=== PATIENT | male | born 1970 | race African-American/Black ===

== ENCOUNTER 2017-10-20 01:36 | Emergency (ER) | payer OTHER ==
[~2017-10-20] VITALS: Ht 180.3 cm; Wt 98.0 kg
--- NOTE | 2017-10-20 02:44 | ED HAND/WRIST INJURY COMPLAINT ---
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 LAC NOTED W/ CONTINUOUS BLEEDING THROUGHOUT TRIAGE, SATURATED 3 DRESSINGS. LAC NOTED TO L LATERAL/ TOP OF WRIST W/ APPROX BASEBALL SIZED SWELLING TO SITE. MD SINGLETON AWARE. REPORTS IS UTD W/ TETNAUS. Triage Nurses Notes Reviewed? yes Occurred: just prior to arrival Duration: minute(s):, constant, continues in ED Timing: single episode today Injury Environment: street Severity: severe Pain/Injury Location: Left: Forearm, Wrist. Context: blow, incision Method of Injury: direct blow Modifying Factors: Improves With: immobilization, rest. Worsens With: movement. Associated Symptoms: swelling, GCS 15 since, stiffness HPI: Prior to admission the patient was fixing a flat tire when something from the undercarriage struck his left dorsal forearm. He complains of pain to the site and bleeding. There is no other injury fever chills nausea vomiting diarrhea abdominal pain chest pain shortness breath headache dysuria. He is right-hand dominant. Past History Travel History Traveled to [place] past 21 day No Medical History Any Pertinent Medical History? none Neurological: NONE EENT: NONE Cardiovascular: NONE Respiratory: NONE Gastrointestinal: NONE Hepatic: NONE Renal: NONE Musculoskeletal: NONE Psychiatric: NONE Endocrine: NONE Blood Disorders: NONE Cancer(s): NONE AUTOMATION MACHINE OPERATOR/Reproductive: NONE Surgical History Surgical History: non-contributory Psychosocial History What is your primary language Malay Tobacco Use: Never used Family History Hx Contributory? No Review of Systems Review of Systems Constitutional: Reports: no symptoms. EENTM: Reports: no symptoms. Respiratory: Reports: no symptoms. Cardiovascular: Reports: no symptoms. GI: Reports: no symptoms. Genitourinary: Reports: no symptoms. Musculoskeletal: Reports: see HPI, joint pain. Skin: Reports: see HPI. Neurological/Psychological: Reports: no symptoms. Hematologic/Endocrine: Reports: no symptoms. Immunologic/Allergic: Reports: no symptoms. All Other Systems: Reviewed and Negative Physical Exam Physical Exam General Appearance: well developed/nourished, alert, awake, anxious, moderate distress Head: atraumatic, normal appearance Eyes: Bilateral: normal appearance, PERRL, EOMI. Ears, Nose, Throat: normal pharynx, normal ENT inspection, hearing grossly normal Neck: normal inspection, supple, full range of motion, no midline tenderness Cardiovascular/Respiratory: normal breath sounds, normal peripheral pulses, regular rate/rhythm, no respiratory distress Back: normal inspection, normal range of motion Shoulder Left: normal range of motion, normal inspection Shoulder Right: normal range of motion, normal inspection Elbow Left: normal range of motion, normal inspection Elbow Right: normal range of motion, normal inspection Forearm Left: swelling, tenderness, bone tenderness, evidence of injury, soft tissue tenderness, limited range of motion Forearm Right: normal range of motion, normal inspection Wrist Left: normal range of motion, normal inspection Wrist Right: normal range of motion, normal inspection Hand Left: normal inspection, normal range of motion Hand Right: normal inspection, normal range of motion Reflexes: 2+: bicep (R), bicep (L). Neurologic/Tendon: normal sensation, normal motor functions, normal tendon functions Skin: normal color, warm/dry, left forearm with 3 cm semicircular irregular laceration with retained clot and arteriolar bleeding. Lymphatic: no anterior cervical gamaliel Progress Differential Diagnosis: compartment syndrome, fracture Plan of Care: Orders Procedure Date/time Status XRY-FOREARM, LEFT 10/20 015 Active Comments: Discussed with Y Access trauma and hand surgery to ED for further evaluation and possible operative intervention. Departure Departure Disposition: OTHER GENERAL HOS[facility] (ACUTE) Condition: Fair Clinical Impression Primary Impression: Contusion of left forearm, initial encounter Secondary Impressions: Laceration of left forearm with complication Referrals: Patient Has No Primary Care Dr (PCP/Family) Departure Forms: Customer Survey General Discharge Information Prescriptions: Current Visit Scripts No Known Home Medications
--- NOTE | 2017-10-20 02:51 | RADIOLOGY REPORT ---
EXAMINATION: XR FOREARM, LEFT CLINICAL INFORMATION: Blunt trauma distal forearm COMPARISON: None TECHNIQUE: AP and lateral views of the left forearm were obtained. FINDINGS: Osseous alignment is anatomic. No acute fracture is seen. There is soft tissue swelling of the distal forearm. Olecranon spurring is noted at the elbow. No appreciable elbow effusion. IMPRESSION: Soft tissue swelling of the distal forearm. No fracture identified.
[2017-10-20 03:24] VITALS: BP 148/86
== END 2017-10-20 04:23 | disposition short-term general hospital (02) ==
LOC: ERH 01:36
DX: S50.12XA Contusion of left forearm, initial encounter (principal); S51.812A Laceration without foreign body of left forearm, initial encounter; W45.8XXA Other foreign body or object entering through skin, initial encounter; Y93.89 Activity, other specified; Y92.410 Unspecified street and highway as the place of occurrence of the external cause
CPT/HCPCS: 73090-LT; J2001